=== PATIENT | male | born 1975 | race Caucasian/White ===

== ENCOUNTER 2021-01-07 08:17 | Outpatient (CLI) | payer OTHER, SELFPAY ==
--- NOTE | 2021-01-07 | ECG_ITS ---
Measurements Intervals [place] Rate: 93 P: 38 MN: 164 QRS: 66 QRSD: 97 T: 29 QT: 346 QTc: 431 Interpretive Statements SINUS RHYTHM EARLY PRECORDIAL R/S TRANSITION MINIMAL Q WAVES- INFERIOR LEADS BASELINE ARTIFACT- I, II, III, AVR, AVL, AVF BORDERLINE ECG Electronically Signed On 01-07-2021 9:36:00 CDT by Wing Espinosa D.O.
--- NOTE | ~2021-01-07 | XR_ITS ---
EXAMINATION: XR knee LT 3V DATE: 01/07/2021 08:32 INDICATION: Left knee pain TECHNIQUE: Three views of the left knee were obtained. COMPARISON: None. FINDINGS: Alignment is normal. No fracture or osteochondral lesion. There is mild tricompartmental os teoarthritis characterized by tiny marginal osteophytes. No joint effusion/synovitis. Soft tissues a re unremarkable. IMPRESSION: 1. No acute osseous abnormality. Reviewed, dictated and finalized at location A.
[2021-01-07 08:59] LABS: Basophils Percent Auto 0.3 % (0.2-1.2); Hematocrit 45.1 % (42.0-52.0); Hemoglobin 14.7 g/dL (14.0-18.0); Immature Granulocyte Absolute 0.02 K/mm3 (0.00-0.031); Immature Granulocyte Percent A 0.3 % (0-0.5); Lymphocytes Absolute Auto 0.96 K/mm3 (0.9-3.2); Mean Corpuscular HGB Conc 32.6 g/dl (32-36); Mean Platelet Volume 10.2 fl (7.4-10.4); Monocytes Absolute Auto 0.9 K/mm3 (0.1-0.6); Monocytes Percent Auto 12.3 % (2.6-8.5); Neutrophils Absolute Auto 5.5 K/mm3 (1.3-6.7); Neutrophils Percent Auto 74.1 % (45.5-73.1); Platelet Count Result 171 k/mm3 (150-375); Red Cell Distribution Width 12.6 % (11.5-14.5); White Blood Count 7.4 K/mm3 (4.5-10.0)
[2021-01-07 09:12] LABS: Anion Gap 4 mmol/L (8-16); Blood Urea Nitrogen 10 mg/dL (9-20); Calcium 8.7 mg/dL (8.4-10.2); Carbon Dioxide 29 mmol/L (22-30); Chloride 108 mmol/L (98-107); Estimated Glomerular Filt Rate > 60; Glucose 116 mg/dL (75-110); Potassium 3.5 mmol/L (3.4-5.0); Sodium 141 mmol/L (137-145)
== END 2021-01-07 08:18 | disposition home or self-care (01) ==
PROVIDERS: PCP Family Medicine; Visit Provider Nurse Practitioner Family
DX: H93.19 Tinnitus, unspecified ear (principal); R42 Dizziness and giddiness; M25.569 Pain in unspecified knee; R94.31 Abnormal electrocardiogram [ECG] [EKG]
CPT/HCPCS: 36415; 73562; 80048; 84443; 85025; 93005

== ENCOUNTER 2021-01-27 07:31 | Outpatient (CLI) | payer OTHER, SELFPAY ==
--- NOTE | 2021-01-27 07:45 | EST_ITS ---
Patient Info Name: Zaki Chakraborty Age: 45 years : 1975 Gender: Male Ht: 71 in Wt: 220 lbs BSA: 2.26 m2 Exam Date: 01/27/2021 8:44 AM Exam Location: [facility] Stress Patient Status: Outpatient Admit Date: 01/27/2021 Staff Ordering Physician: Nora Noland NP Attending Provider: Nora Noland NP Exercise Technologist: India Woo RDCS Exercise Physician: Wing Espinosa DO Exam Type: CA stress test treadmill Study Info Indications I10 - Essential (primary) hypertension A treadmill exercise stress test was performed. Summary 1. 1. Negative Junior exercise stress test for ischemic ST changes by ECG criteria. 2. 2. Good functional capacity, achieving 10 METs of workload. 3. 3. Hypertensive response to exercise. 4. 4. Appropriate HR response to exercise. 5. 5. Appropriate HR recovery at 1 minute post exercise. 6. 6. No imaging with stress testing. 7. 7. Patient informed of the above results. Protocol: Junior Stress ECG Details Stage: REST Duration (min): 0 min : 54 sec Speed (mph): 0.0 Grade (%): 0 HR (bpm): 68 SBP (mmHg): 131 DBP (mmHg): 81 METS: --- Stage: REST Duration (min): 5 min : 12 sec Speed (mph): 0.0 Grade (%): 0 HR (bpm): 84 SBP (mmHg): 131 DBP (mmHg): 81 METS: --- Stage: STAGE 1 Duration (min): 1 min : 0 sec Speed (mph): 1.7 Grade (%): 10 HR (bpm): 110 SBP (mmHg): 131 DBP (mmHg): 81 METS: --- Stage: STAGE 1 Duration (min): 2 min : 0 sec Speed (mph): 1.7 Grade (%): 10 HR (bpm): 118 SBP (mmHg): 131 DBP (mmHg): 81 METS: --- Stage: STAGE 1 Duration (min): 3 min : 0 sec Speed (mph): 1.7 Grade (%): 10 HR (bpm): 124 SBP (mmHg): 161 DBP (mmHg): 72 METS: --- Stage: STAGE 2 Duration (min): 1 min : 0 sec Speed (mph): 2.5 Grade (%): 12 HR (bpm): 135 SBP (mmHg): 161 DBP (mmHg): 72 METS: --- Stage: STAGE 2 Duration (min): 2 min : 0 sec Speed (mph): 2.5 Grade (%): 12 HR (bpm): 143 SBP (mmHg): 196 DBP (mmHg): 74 METS: --- Stage: STAGE 2 Duration (min): 3 min : 0 sec Speed (mph): 2.5 Grade (%): 12 HR (bpm): 147 SBP (mmHg): 196 DBP (mmHg): 74 METS: --- Stage: STAGE 3 Duration (min): 1 min : 0 sec Speed (mph): 3.4 Grade (%): 14 HR (bpm): 160 SBP (mmHg): 187 DBP (mmHg): 62 METS: --- Stage: STAGE 3 Duration (min): 2 min : 0 sec Speed (mph): 3.4 Grade (%): 14 HR (bpm): 168 SBP (mmHg): 187 DBP (mmHg): 62 METS: --- Stage: STAGE 3 Duration (min): 2 min : 30 sec Speed (mph): 3.4 Grade (%): 14 HR (bpm): 172 SBP (mmHg): 187 DBP (mmHg): 62 METS: --- Stage: RECOVERY Duration (min): 0 min : 29 sec Speed (mph): 0.0 Grade (%): 0 HR (bpm): 166 SBP (mmHg): 193 DBP (mmHg): 67 METS: --- Stage:
--- NOTE | 2021-01-27 07:45 | ECHO_ITS ---
Patient Info Name: Zaki Chakraborty Age: 45 years : 1975 Gender: Male Ht: 71 in Wt: 220 lbs BSA: 2.26 m2 HR: 71 bpm BP: 134 / 83 mmHg Technical Quality: Good Exam Date: 01/27/2021 8:00 AM Exam Location: [facility] Patient Status: Outpatient Admit Date: 01/27/2021 Staff Ordering Physician: Nora Noland NP Wound Care Technician: India Woo RDCS Attending Provider: Nora Noland NP Referring Physician: Ludin PRICE; Exam Type: CA echo doppler color flow Study Info Indications I10 - Essential (primary) hypertension Complete two-dimensional, color flow and Doppler transthoracic echocardiogram is performed. Summary 1. Complete two-dimensional, color flow and Doppler transthoracic echocardiogram is performed. 2. Left ventricular chamber dimension is normal. 3. Left ventricular systolic function is normal, estimated at 60-65%. 4. The left ventricular diastolic function is normal. 5. E/e' 7 is not elevated. 6. Global longitudinal strain is abnormal at -14.7%. Left Ventricle E/e' 7 is not elevated. Global longitudinal strain is abnormal at -14.7%. Left ventricular chamber dimension is normal. Left ventricular systolic function is normal, estimated at 60-65%. The left ventricular diastolic function is normal. Right Ventricle Right ventricular chamber dimension is normal. Right ventricular systolic function is normal. Left Atria Left atrial chamber dimension is normal. Right Atria Right atrial chamber dimension is normal. Aortic Valve The aortic valve is trileaflet. There is no aortic valve stenosis. There is no aortic valve regurgitation. Pulmonic Valve There is no pulmonic regurgitation. Mitral Valve There is no mitral valve stenosis. There is no mitral valve regurgitation. Tricuspid Valve There is no tricuspid valve regurgitation. Pericardium/Pleural There is no pericardial effusion. Inferior Vena Cava Normal inferior vena cava with >50% collapse upon inspiration consistent with normal right atrial pressure, 5 mmHg. Aorta The aortic root size at the sinus of Valsalva is normal. Left Ventricular Outflow Tract Name Value Normal LVOT 2D LVOT Diameter 2.1 cm LVOT Doppler LVOT Peak Gradient 4 mmHg LVOT Mean Gradient 2 mmHg LVOT VTI 22 cm LVOT VTI/AV VTI Ratio 0.8 LVOT Stroke Volume 73 ml LVOT CO 4.7 l/min LVOT CI 2.1 l/min/m2 Pulmonic Valve Name Value Normal RVOT Doppler RVOT Peak Gradient 2 mmHg PV Doppler PV Peak Gradient 8 mmHg Mitral Valve ----
== END 2021-01-27 07:32 | disposition home or self-care (01) ==
PROVIDERS: PCP Family Medicine; Visit Provider Nurse Practitioner Family
DX: R42 Dizziness and giddiness (principal); I10 Essential (primary) hypertension
CPT/HCPCS: 93017; 93306

== ENCOUNTER 2023-02-09 09:38 | Outpatient (CLI) | payer OTHER, SELFPAY ==
[2023-02-09 10:10] LABS: Basophils Percent Auto 0.6 % (0.2-1.2); Eosinophils Percent Auto 0.4 % (0-4.4); Hematocrit 47.6 % (42.0-52.0); Hemoglobin 15.5 g/dL (14.0-18.0); Immature Granulocyte Absolute 0.02 K/mm3 (0.00-0.031); Immature Granulocyte Percent A 0.4 % (0-0.5); Immature Platelet Fraction Pct 9.2 % (0.9-11.2); Lymphocytes Absolute Auto 1.15 K/mm3 (0.9-3.2); Lymphocytes Percent Auto 23.4 % (18.3-44.2); Mean Corpuscular HGB Conc 32.6 g/dl (32-36); Mean Corpuscular Hemoglobin 30.4 pg (26-34); Mean Corpuscular Volume 93.3 fl (80-100); Mean Platelet Volume 11.4 fl (7.4-10.4); Monocytes Absolute Auto 0.5 K/mm3 (0.1-0.6); Monocytes Percent Auto 9.2 % (2.6-8.5); Neutrophils Absolute Auto 3.2 K/mm3 (1.3-6.7); Platelet Count Result 129 k/mm3 (150-375); Red Cell Distribution Width 12.6 % (11.5-14.5); White Blood Count 4.9 K/mm3 (4.5-10.0)
[2023-02-09 10:17] LABS: Alanine Aminotransferase 31 U/L (6-50); Albumin Level 4.2 g/dL (3.5-5.1); Alkaline Phosphatase 75 U/L (38-126); Anion Gap 3 mmol/L (8-16); Aspartate Amino Transferase 32 U/L (17-59); Bilirubin,Total 0.8 mg/dL (0.2-1.3); Blood Urea Nitrogen 13 mg/dL (9-20); Calcium 8.5 mg/dL (8.4-10.2); Carbon Dioxide 31 mmol/L (22-30); Chloride 106 mmol/L (98-107); Cholesterol 240 mg/dL (0-200); Estimated Glomerular Filt Rate > 60; Glucose 98 mg/dL (65-110); HDL Direct 68 mg/dL; Potassium 4.4 mmol/L (3.4-5.0); Sodium 140 mmol/L (137-145); Triglycerides 86 mg/dL (<150)
[2023-02-09 10:28] LABS: LDL Cholesterol Direct 139 mg/dL
[2023-02-09 10:48] LABS: Prostate Specific Antigen 0.8 ng/mL (< OR = 4.0); Thyroid Stimulating Hormone 0.862 uIU/mL (0.465-4.680)
[2023-02-13 16:39] LABS: Testosterone Free 111.5 pg/mL (35.0-155.0); Testosterone Total 563 ng/dL (250-1100)
== END 2023-02-09 09:39 | disposition home or self-care (01) ==
PROVIDERS: PCP Family Medicine; Visit Provider Family Medicine
DX: I10 Essential (primary) hypertension (principal); F32.5 Major depressive disorder, single episode, in full remission; R68.82 Decreased libido; E78.2 Mixed hyperlipidemia; Z12.5 Encounter for screening for malignant neoplasm of prostate; Z13.220 Encounter for screening for lipoid disorders
CPT/HCPCS: 36415; 80048; 80061; 80076; 84153; 84402; 84403; 84443; 85025; 85055; G0103

== ENCOUNTER 2023-09-08 14:55 | Outpatient (CLI) | payer OTHER, SELFPAY | END 2023-09-08 14:56 | disposition home or self-care (01) | LOC: ANHSURGERY 15:01 | PROVIDERS: PCP Family Medicine; Visit Provider Surgery | DX: K43.9 Ventral hernia without obstruction or gangrene (principal); Z01.818 Encounter for other preprocedural examination | CPT/HCPCS: 36415; 86850; 86900; 86901 ==

== ENCOUNTER 2023-09-10 00:08 | Day surgery (SDC) | payer OTHER, SELFPAY ==
[2023-09-03 10:31] VITALS: BMI 32.3
--- NOTE | 2023-09-03 10:35 | PC.NURSE ---
Report to the Outpatient Waiting Room, entrance under the green pavilion located off [facility], at time 6:00 on date 09/10/23. Planned Procedure Time: 7:30. Time changes happen often and if your time is changed the preop area will call you the afternoon before. - You and your visitor will be asked to self-screen and do not enter if you have any COVID symptoms. - A mask is optional within the hospital at this time. Patients may have clear liquids (water, carbonated beverages, clear teas, apple juice) until 3 hours prior to surgery (4:30) with a maximum of 20 ounces. - No food from midnight until time of surgery Take the following medications with a SIP of water the morning of surgery: LEXAPRO, INHALER DO NOT STOP ANY OF YOUR OTHER PRESCRIPTION MEDICATIONS PRIOR TO SURGERY ?EXCEPT THE FOLLOWING Medications to discontinue per physician: N/A Date to take last dose: N/A Please no make-up, nail bhutanese, hairspray, perfume, deodorant, or body powder the day of surgery. No jewelry (including any body piercings) or valuables the day of surgery, leave them at home. Please take a shower or bath the night before, or the morning of, surgery with an antibacterial soap. Wear comfortable, loose fitting clothing. - Jewelry must be removed prior to entering the operating room. Rings and piercings that are not removed may be cut off. - The hospital will not accept responsibility for valuables. - Please leave all valuables, including medications, at home the day of surgery. If you are going home after surgery, a licensed hazmat tanker driver must drive you home. - NO public transportation without another adult if you receive anesthesia. - We recommend that an adult stay with you for 24 hours following discharge. - We also recommend that you do not drive, make important decision, drink alcoholic beverages, or take any drugs that were not prescribed by your health care provider for at least 24 hours after your discharge time. Follow any additional instructions given to you from your surgeon. If you or anyone in your household have experienced Covid symptoms in the past week, please notify your surgeon or the nurse liaison at the phone number below for possible testing. Telephone instructions given to PT - PHUONG ROMERO and asked if any additional questions and then verbalized understanding. Patient advised to call surgeon office or pre surgery nurse liaison [phone] if any additional questions.
--- NOTE | 2023-09-09 14:56 | WPDANESEPPF ---
Anes - Initial Pre Proc Eval Procedure: Operation Date: 09/10/23 07:30 Proposed Procedures p Robotic Assisted Laparoscopic Incarcerated Ventral Hernia Repair with Mesh, Possible Open - Hung Haque MD Date/Time: 09/09/23 14:56 Surgeon: Hung Haque MD Pre Op Diagnosis: incarcerated ventral hernia Patient Data Age: 47 Gender: M Height: 1.78 m Weight: 102.1 kg Allergies Allergy/AdvReac Type Severity Reaction Status Date / Time No Known Allergies Allergy Mild Verified 09/10/23 06:19 Home Medications Medication Instructions Recorded Confirmed Type fluticasone fur. 100 mcg-umeclid 1 inhalation inhalation DAILY 03/14/20 09/10/23 History 62.5 mcg-vilant 25 mcg inhalat.powder (Trelegy Ellipta) montelukast 10 mg tablet See Rx Instructions .Route 01/07/23 09/10/23 Rx .COMPLEX #90 tabs escitalopram oxalate 10 mg tablet 10 mg PO DAILY #90 tabs 05/18/23 09/10/23 Rx (Lexapro) Patient hx anesthesia problems: none Family hx anesthesia problems: none Results Review: All pre-operative results and documents have been reviewed as part of the pre-operative evaluation. [facility] Past Medical History Medical History (Updated 06/07/23 @ 14:47 by Ryder Kothari MD) BMI 32.0-32.9,adult BMI 33.0-33.9,adult BMI 34.0-34.9,adult Dermatitis Low libido Nasal polyps Screening PSA (prostate specific antigen) Surgical History Surgical History H/O sinus surgery x2 Family History Family History Father Hypertension Mother COPD (chronic obstructive pulmonary disease) Asthma Heart disease Sibling No problems noted. Social History Social History Smoking status: Never smoker Second hand tobacco smoke exposure: No Alcohol intake: current Drinks per week: 4 Alcohol use details: Social alcohol use Substance use: never Substance use type: does not use Lack of Transportation: No Lack of Food: Never True Current Housing: I Have Housing Concerned About Future Housing: No Difficulty Paying Gas/Electric Bills: No Difficulty Paying for Meds: No Currently Unemployed: No Education: Bachelor's Degree Difficulty w/ Childcare or Family Care: No Living arrangements: with family Additional living arrangements comments: CHILDREN Occupation/Education: occupation 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 Informed Consent: The patient's anesthetic plan and its attendant risks and benefits were discussed with the patient/family/POA. Questions were solicited and answers provided to the satisfaction of the patient/family/POA.
[2023-09-10] VITALS (11 sets, daily range): BP systolic 114–148; BP diastolic 74–98; PULSE 77–103; RESP 15–19; TEMP 36.2–36.4; O2SAT 93–98
[2023-09-10] MEDS: ACETAMINOPHEN 500 MG TABLET 1000 MG PO (06:25)
[2023-09-10] MEDS: LACTATED RINGERS 1,000 ML 30 ML IV CONT ×3 (06:35→12:32)
[2023-09-10] MEDS: KETOROLAC 15 MG/ML VIAL (*BKC) IV PUSH ×2 (07:29→10:41)
--- NOTE | 2023-09-10 07:30 | PM.IMHP ---
H&P: HPI History of Present Illness Date/Time: 09/10/23 07:30 Chief Complaint: Incarcerated ventral hernia Narrative: Mr. Chakraborty returns to the office for recheck of a incarcerated umbilical hernia.? Originally evaluated in 01/2023 at which time the patient had voiced he wanted to try to lose weight prior to elective surgery.? Weight is essentially unchanged since initial consultation. ? He has developed some slight overlying skin redness, but no skin breakdown.? Hernia is still nontender.? No change in bowel habits, nausea, vomiting, or abdominal distension.? Review of Systems Review of Systems: The remainder of the review of systems to include constitutional, HEENT, cardiovascular, respiratory, GI, , integumentary, musculoskeletal, endocrine, immunologic, hematologic, psychiatric, and neurologic are all negative except for which is mentioned above in the HPI. [facility] Past Medical History Medical History BMI 32.0-32.9,adult BMI 33.0-33.9,adult BMI 34.0-34.9,adult Dermatitis Low libido Nasal polyps Screening PSA (prostate specific antigen) Surgical History Surgical History H/O sinus surgery x2 Family History Family History Father Hypertension Mother COPD (chronic obstructive pulmonary disease) Asthma Heart disease Sibling No problems noted. Social History Social History Smoking status: Never smoker Second hand tobacco smoke exposure: No Alcohol intake: current Drinks per week: 4 Alcohol use details: Social alcohol use Substance use: never Substance use type: does not use Lack of Transportation: No Lack of Food: Never True Current Housing: I Have Housing Concerned About Future Housing: No Difficulty Paying Gas/Electric Bills: No Difficulty Paying for Meds: No Currently Unemployed: No Education: Bachelor's Degree Difficulty w/ Childcare or Family Care: No Living arrangements: with family Additional living arrangements comments: CHILDREN Occupation/Education: occupation 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 100 mcg-umeclid 1 inhalation inhalation DAILY 03/14/20 09/10/23 History 62.5 mcg-vilant 25 mcg inhalat.powder (Trelegy Ellipta) montelukast 10 mg tablet See Rx Instructions .Route 01/07/23 09/10/23 Rx .COMPLEX #90 tabs escitalopram oxalate 10 mg tablet 10 mg PO DAILY #90 tabs 05/18/23 09/10/23 Rx (Lexapro) Allergies Allergy/AdvReac Type Severity Reaction Status Date / Time No Known Allergies Allergy Mild Verified 09/10/23 06:19 Vital Signs Vital Signs - 24 hr 09/10/23 06:49 Temperature 36.2 C L Pulse Rate 77 Respiratory Rate 16 Blood Pressure 148/87 H Pulse Oximetry 97 Oxygen Delivery Room Air Exam Const: General: comfortable and no acute distress HENMT: Ears: TM's normal bilaterally Face/Nose/Sinus: Normal nares present Mouth: Yes moist mucous membranes Eyes: General: appearance normal, both eyes and all related structures Sclera: sclerae normal Pupils: Equal, round and reactive pupils present EOM: EOMs intact bilaterally Neck: Neck: supple and no JVD Resp: Effort & Inspection: normal respiratory effort Auscultation: clear to auscultation bilaterally Cardio: Rate: regular rate Rhythm: regular rhythm GI: Other: Inspection: normal to inspection and No abdominal distension Auscultation: normal bowel sounds Palpation/Percussion: Yes Soft to palpation and Yes Hernia present Other: Soft, nondistended.? Incarcerated umbilical hernia with a 4cm defect.? Mi
--- NOTE | 2023-09-10 07:33 | WPDHPUPDATE1 ---
History and Physical Update Update Date/Time: 09/10/23 07:33 History and Physical has been reviewed, including an updated exam of the patient. There are NO changes in the patient's condition. Risks, benefits, and alternatives have been discussed and questions answered. Patient agrees to proceed with procedure.
[2023-09-10] MEDS: ceFAZolin 2 GM/D5W 50 ML 2 GM/50 ML BAG IVPB (07:38)
[2023-09-10] MEDS: BUPivacaine HCL 0.5% 10 ML AMP 30 ML INFILTRATE (08:33)
[2023-09-10] MEDS: LIDO 1%/EPINEPHRINE 1:100,000 20 ML VIAL 30 ML INFILTRATE (08:33)
[2023-09-10] MEDS: fentaNYL CITRATE INJ (*CRX) 100 MCG/2 ML VIAL 25 MCG IV PUSH ×2 (11:40→11:42)
--- NOTE | 2023-09-10 12:32 | W.PM.PROC2 ---
Procedure Note - Detailed Date of Procedure 09/10/23 Pre-op Diagnosis incarcerated ventral hernia Post-op Diagnosis Same (Hernia defect = 3.5 cm) Procedure Performed Robotic assisted laparoscopic transabdominal preperitoneal ( ROMAN) incarcerated ventral hernia repair with Bard soft mesh. Surgeon Hung Haque MD Diversity Specialist MIGUELANGEL Garcia Anesthesia General Indications Patient is a 47-year-old male who presented with a progressively enlarging periumbilical bulge. On exam he appeared to have an incarcerated ventral hernia. Contents the hernia sac appeared to be omentum. He presents now for elective robotic assisted laparoscopic incarcerated ventral hernia repair with mesh reinforcement. Findings The incarcerated contents of the hernia sac was omentum which was completely viable. After reduction of the omentum out of the defect, the hernia measured 3.5cm in greatest diameter. No other adhesions or ventral hernias were seen. A piece of [id number] Bard soft mesh was used for the repair and was placed in the preperitoneal plane. Description of Procedure After informed consent was obtained patient brought to the operating room placed supine position and general endotracheal anesthesia was administered. A Whalen catheter was placed decompress the bladder. The abdomen was then prepped draped usual sterile fashion. A time-out was then performed correctly identifying the patient as well as procedure to be performed. He was given perioperative IV antibiotics. First started by placing a 10mm left upper quadrant Optiview port with a direct optical insertion. Once inside the abdomen insufflated to adequate pneumoperitoneum of 15mmHg CO2. Looking into the abdomen I could see that there was omentum incarcerated within the periumbilical ventral hernia sac. No bowel was involved. No other adhesions or other hernia defects were seen. I then placed additional robotic trocar ports along the left lateral abdominal wall under direct visualization. The [employer] Adriana robot was then brought to the patient's bedside and docked to the right side of the patient. The robotic arms were then attached the robotic ports and then robotic instruments were advanced into the abdomen under direct visualization. I then scrubbed out the procedure side down at the robotic console to perform the dissection robotically. I 1st started by reducing the omentum out of the hernia defect. All the omentum that had pulled out of the hernia defect was 1st started by a preperitoneal flap by incising the lateral portions of the peritoneum on the left side. Once inside the preperitoneal plane I continued my dissection towards the midline superior and inferior to the hernia sac and incarcerated contents. Once I had dissected past the midline the preperitoneal plane and I had the volcano sign on the peritoneal sac, I then dissect the hernia sac out of the defect. The resulting defect in the fascia was then measured it was 3.5cm in diameter. There was a very mild associated epigastric diastasis above the hernia defect as well. Once I had the flap dissected across the midline so had at least 5cm of circumferential dissection performed around the defect, I then proceeded to close the defect utilizing a running #1 PDS Stratafix suture. The suture was started 0cm below the defect and the hernia sac was imbricated with the closure of the defect. I continued cephalad of the defect performing a plication defect with that suture to bring the more robust edges of the rectus muscle to the midline. Once this is done I then proceeded to use a [id number] piece of Bard soft mesh which was placed into the abdomen through the 10mm bedside podiatry assistant port site. The mesh was then situated in the dissected space in a rangel configuration so that the vertical axis of the mass was longer than just 15cm. The mesh was centered on the closed defect and then secured circumferentially with a running 2-0 absorbable V lock sutu
[2023-09-10] MEDS: oxyCODONE HCL (*CRX) 5 MG TAB IR PO (13:04)
== END 2023-09-10 13:46 | disposition home or self-care (01) ==
PROVIDERS: PCP Family Medicine; Visit Provider Surgery
PROC: (CPT 49594; principal; 2023-09-10 07:30)
DX: K43.6 Other and unspecified ventral hernia with obstruction, without gangrene (principal)
CPT/HCPCS: 49594; S2900; 36415; 86850; 86900; 86901; A9270; C1781; J0690; J1100; J1170; J1596; J1885; J2250; J2405; J2704; J3010; J7120

== ENCOUNTER 2024-10-11 19:14 | Emergency (ER) | payer OTHER, SELFPAY ==
--- OUTSIDE RECORDS SUMMARY | 2024-10-11 19:16 | XMS_ITS | Continuity of Care Document ---
Author Organization [facility] Address [address] [place] [address] Phone Care Team Providers Care Support Clerk Name Role Phone Hung Blackman MD Unavailable Unavailable Allergies, Adverse Reactions, Alerts Substance Reaction Status Criticality No Known allergies Procedures Procedure Date OFFICE/OUTPATIENT VISIT EST OFFICE/OUTPATIENT VISIT [facility] Advance Directives Directive Yes / No Effective Date File Name Resuscitation Not Answered N/A N/A Life Support Not Answered N/A N/A Intubation Not Answered N/A N/A Antibiotics Not Answered N/A N/A IV Fluid Support Not Answered N/A N/A Tube Feed Not Answered N/A N/A Other Directive N/A N/A WARNING:The information contained in this section is historical and is provided for information only and does not constitute a legal document or any assurance that the information is still accurate. Please verify the information with the reina of the legal document before using it for clinical purposes. Encounters Encounter Description Practice Location Reason(s) For Visit Diagnoses Date Provider Providers Copied on Encounter OFFICE/OUTPA TIENT VISIT EST [facility], [address], [place], [address], [place] tel:[phone] [facility] Shoulder impingementShou lder pain 0- 4 Hiral Persaud. [address], [place], [place], [id number] . tel: [phone] OFFICE/OUTPA TIENT VISIT [facility], [address], [place], [address], [place] tel:[phone] [facility] Shoulder impingementPlan tar fasciitis 0 3 Hiral Persaud. [address], [place], [place], [id number] . tel:[phone] Family History Family Member Type Diagnosis Age At Onset No Information Payers Payer name Insurance type Covered democrat ID Authoriza tion(s) No Information Social History Type Description Quantity Date Captured Comments Alcohol Use Details Unknown Caffeine Use Details Unknown Tobacco Use Status No Information Smoking Status Never smoker Sex Male Chief Complaint And Reason For Visit No Information Reason For Referral Reason For Referral No Information Plan Of Treatment Date Type Action Status Referral Ordered: MRI ANY JT UXTR C-MATRL RT shoulder Appointment date/timeframe: 09/18/2013 ordered Referral Ordered: RADEX FOOT COMPL MINIMUM 3 VIEWS RT foot ordered Referral Ordered: RADEX MARIANA COMPL MINIMUM 2 VIEWS RT shoulder ordered History Of Present Illness Encounter Date Complaint History Of Prese nt Illness No Information Functional Status Date Functional Assessmen t No Information Instructions Date Instruction Additional Infor mation No Information Assessments Type Assessment Date No Information Patient Care Teams Name Effective Dates (start - stop) Status Members No Information
--- OUTSIDE RECORDS SUMMARY | 2024-10-11 19:16 | XMS_ITS | Clinical Summary ---
Author Organization [facility] Address [address] [place] [address] Phone Care Team Providers Care [employer] Reading Teacher Name Role Phone Unavailable Primary Care Provider Unavailabl e Social History Tobacco Use Types Packs/Day Years Used Date Smoking Tobacco: Never Assessed Sex and Gender Information Value Date Recorded Sex Assigned at Not on file Legal Sex Male 10:23 PM CDT Gender Identity Not on file Sexual Orientation Not on file Plan of Treatment Health Maintenance Due Date Last Done Comments DTAP/TDAP/TD VACCINES (1 - Tdap) 1993 HEPATITIS B VACCINES (1 of 3 - 19+ 3-dose series) 1993 COLORECTAL SCREENING 11/23/2019 Colorectal Cancer Screening 11/23/2019 FIT-DNA Q 3 years 11/23/2019 FIT/FOBT Q 1 year 11/23/2019 Flex Sig/CT Colonography Q 5 years 11/23/2019 INFLUENZA VACCINE (#1) 2024 PNEUMOCOCCAL VACCINE 0-64 YEARS Aged Out No longer eligible based on patient's age to complete this topic Insurance [facility] OPTIONS PPO [id number]
[2024-10-11 19:34] VITALS: BP 143/100; PULSE 80; RESP 18; TEMP 36.9; O2SAT 98
[2024-10-11 23:49] VITALS: BP 118/87; PULSE 78; RESP 18; O2SAT 96
--- NOTE | 2024-10-12 00:08 | ED.NAVMDI ---
HPI - Nausea/Vomiting/Diarrhea General Chief complaint: Nausea/Vomiting/Diarrhea Stated complaint: vomiting Time Seen by Provider: 10/11/24 23:50 History of Present Illness HPI Narrative: 48-year-old male presenting to the emergency department for evaluation of nausea, vomiting, abdominal discomfort for last few days. He has had a history of abdominal surgical repair including incarcerated hernias requiring mesh and reduction with Dr. Haque. Presents to the emergency department for persistent nausea vomiting despite antiemetic therapy at home with Zofran and another agent that his brother who is a physician here prescribed. Patient is not any acute distress but is nauseous and belching during my assessment. Endorses some left lower quadrant abdominal pain. No diarrhea but states he has not had anything solid to eat for several days, denies any back pain, chest pain, shortness a breath. No injury trauma. No flu-like symptoms. Went to his regular doctor in tested negative for influenza. Related Data Home Medications ?Medication ?Instructions ?Recorded ?Confirmed ?Last Taken ?Type fluticasone fur. 100 mcg-umeclid 1 inhalation inhalation DAILY 03/14/20 10/11/24 09/05/23 History 62.5 mcg-vilant 25 mcg inhalat.powder (Trelegy Ellipta) albuterol sulfate 90 mcg/actuation 1 puff inhalation Q4H PRN 06/15/24 10/11/24 Unknown History aerosol inhaler benralizumab 30 mg/mL subcutaneous 30 mg subcut ONCE 06/15/24 10/11/24 Unknown History syringe (Fasenra) Allergies Allergy/AdvReac Type Severity Reaction Status Date / Time No Known Allergies Allergy Mild Verified 06/15/24 10:28 Review of Systems Review of Systems: As reviewed above in HPI [facility] Past Medical History Medical History Dermatitis Low libido BMI 34.0-34.9,adult Nasal polyps Screening PSA (prostate specific antigen) Surgical History Surgical History History of incisional hernia repair 09/10/23 Robotic assisted laparoscopic transabdominal preperitoneal ( ROMAN) incarcerated ventral hernia repair with Bard soft mesh, OA Dr. Haque H/O sinus surgery x2 Family History Family History Father Hypertension Mother COPD (chronic obstructive pulmonary disease) Asthma Heart disease Sibling No problems noted. Social History Social History Smoking status: Never smoker Second hand tobacco smoke exposure: No Alcohol intake: current Drinks per week: 4 Alcohol use details: Social alcohol use Substance use: never Substance use type: does not use Lack of Transportation: No Lack of Food: Never True Current Housing: I Have Housing Concerned About Future Housing: No Difficulty Paying Gas/Electric Bills: No Difficulty Paying for Meds: No Currently Unemployed: No Education: Bachelor's Degree Difficulty w/ Childcare or Family Care: No Living arrangements: with family Additional living arrangements comments: CHILDREN Occupation/Education: occupation 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 HEAD: [Normocephalic, atraumatic.] EYES: [PERRLA and EOMI.] ENT: Nares clear, no rhinorrhea or epistaxis. Mucous membranes moist. NECK: Supple. CHEST: [Clear to auscultation. No respiratory distress.] HEART: [Regular rate and rhythm]. No murmur heard. [Normal peripheral pulses.] ABDOMEN: Protuberant but soft abdomen, tender to palpation left lower quadrant without any peritonitis, [No rigidity or guarding] EXTREMITIES: Normal range of motion. [No edema.] SKIN: Warm, dry, no rash. NEURO: [No focal deficits]. Alert and oriented [x3.] PSYCH: [Normal mood and affect.] Course Vital Signs Vital signs: Vital Signs Temperature 36.9 C 10/11/24 19:34 Pulse Rate 80 10/11/24 19:34 Respiratory Rate 18 10/11/24 19:34 Blood Pressure 143/100 H 10/11/24 19:34 Pulse Oximetry 98 10/11/24 19:34 Oxygen Delivery Room Air 10/11/24 19:34 Temperature 36.9 C 10/11/24 19:34 Pulse Rate 62 10/12/24 06:30 Respiratory Rate 17 10/12/24 06:30 Blood Pressure 150/87 H 10/12/24 06:30 Pulse Oximetry 95 10/12/24 06:30 Oxygen Delivery Room Air 10/11/24 19:34 MDM - Nausea/Vomiting/Diarrhea MDM Narrative Medical decision making narrative: 48-year-old male presenting for evaluation of profound nausea and vomiting with some left-sided lower quadrant abdominal pain for last several days. Has a history of abdominal surgical history with repair of an incarcerated hernia requiring mesh. Denies any worsening protuberance or distention is abdomen. States he has not been eating or drinking so he is not sure if he has been constipated or not. No fever chills. No chest pain shortness a breath. Vital signs all within normal limits, no tachycardia, fever, hypoxia blood pressure concerns. He has a soft protuberant abdomen with tenderness in left lower quadrant. Suspicion presently is for potential viral gastroenteritis, possible bowel obstruction or partial bowel obstruction, less likely diverticulitis or volvulus. Will obtain laboratory studies including CBC, CMP, lipase, lactic acid, CT scan with IV contrast was obtained and he was given medications including Pepcid, Reglan, diphenhydramine and a fluid bolus and re-evaluated frequently. Three patient was re-evaluated with symptom improvement has not vomited and felt retching since he arrived to the ED. Normal vital signs and reassessment. Workup shows mild leukocytosis of 12.7, no anemia or platelet concerns. Chemistry panel shows normal electrolytes aside from some mild hypokalemia 3.3. Normal renal function, normal hepatic function, negative lactic acid, normal glucose. This urinalysis with no signs of infection, some ketones and dehydration consistent with his history. Negative viral panel. Patient CT scan shows duodenitis can his symptomatology but no evidence of perforation. There is some hypoperfusion to the left kidney suspicious for pyelonephritis although he has no pain in that area and nose findings on urinalysis to correlate with this. Unlikely related. Given patient's symptoms and suspicion for duodenitis on CT scan we went over plan of care going forward for triple therapy including PPI and to antibiotics. He will be sent home with the combination regimen to treat this and referred to Gastroenterology for outpatient evaluation and potential EGD if warranted. Patient was given return precautions and symptom control medications on discharge. We went over potential admission here although he felt improved and has not vomited since his arrival. Medical Records Attestation: I reviewed the patient's medical records. Lab Data Attestation: I reviewed the patient's lab results. 10/12/24 00:09 10/12/24 00:09 Labs: Lab Results 10/12/24 10/12/24 Range/Units 00:09 02:22 WBC 12.7 H (4.5-10.0) K/mm3 RBC 4.95 (4.6-6.20) M/mm3 Hgb 14.9 (14.0-18.0) g/dL Hct 43.7 (42.0-52.0) % MCV 88.3 (80-100) fl MCH 30.1 (26-34) pg MCHC 34.1 (32-36) g/dl RDW 12.4 (11.5-14.5) % Plt Count 260 D (150-375) k/mm3 MPV 10.5 H (7.4-10.4) fl Immature Gran % (Auto) 0.5 (0-0.5) % Neut % (Auto) 79.6 H (45.5-73.1) % Lymph % (Auto) 9.6 L (18.3-44.2) % Saline % (Auto) 9.8 H (2.6-8.5) % Eos % (Auto) 0.2 (0-4.4) % Baso % (Auto) 0.3 (0.2-1.2) % Lymph # (Auto) 1.22 (0.9-3.2) K/mm3 Saline # (Auto) 1.2 H (0.1-0.6) K/mm3 Eos # (Auto) 0.0 (0-0.3) K/mm3 Baso # (Auto) 0.0 (0.0-0.1) K/mm3 Abs Immat Gran (auto) 0.06 H (0.00-0.031) K/mm3 Absolute Neuts (auto) 10.1 H (1.3-6.7) K/mm3 Absolute Nucleated RBC 0.000 (0.0-0.012) K/mm3 Nucleated RBC % 0.0 (0.0-0.2) % Sodium 137 (137-145) mmol/L Potassium 3.3 L (3.4-5.0) mmol/L Chloride 95 L (98-107) mmol/L Carbon Dioxide 31 H (22-30) mmol/L Anion Gap 11 (4-12) mmol/L BUN 19 (9-20) mg/dL Creatinine 0.77 (0.7-1.3) mg/dL Estim Creat Clear Calc Not Reportable Estimated GFR > 60 (59 - ) Glucose 112 H (65-110) mg/dL Lactic Acid 1.0 (0.7-2.0) mmol/L Calcium 8.8 (8.4-10.2) mg/dL Total Bilirubin 0.9 (0.2-1.3) mg/dL AST 37 (17-59) U/L ALT 43 (6-50) U/L Alkaline Phosphatase 81 (38-126) U/L Total Protein 7.0 (6.3-8.2) g/dL Albumin 4.1 (3.5-5.1) g/dL Lipase 44 (23-300) U/L Urine Color Yellow (Yellow) Urine Appearance Clear (Clear) Urine pH 5.5 (5.0-9.0) Ur Specific [place] > 1.045 H (1.001-1.035) Urine Protein 1+ H (Negative) mg/dL Urine Glucose (UA) Negative (Negative) mg/dL Urine Ketones 1+ H (Negative) mg/dL Ur Blood (Man) Negative (Negative) Urine Nitrate Negative (Negative) Urine Bilirubin Negative (Negative) Urine Urobilinogen 1.0 (<2.0) mg/dL Leukocyte Esterase Rfl Negative (Negative) MONIQUE/UL Urine RBC 0-2 (0-2) /hpf Urine WBC 0-5 (0-3) /hpf Ur Squamous Epith Cells None seen (Few) /hpf Urine Bacteria None seen /hpf Urine Casts 0-2 Imaging Data Attestation: I personally reviewed and interpreted this imaging study as follows: My impression: Impressions Abdomen/Pelvis CT 10/12/24 06:05 IMPRESSION: 1. Heterogeneous patchy hypoperfusion of the left kidney, suspicious for pyelonephritis. 2: Thickened duodenum with mucosal enhancement, suspicious for duodenitis. No evidence for perforation. Discharge Plan Discharge Clinical Impression: Duodenitis, Nausea & vomiting Patient Disposition: Home, Self-Care Condition: Stable Instructions: Antibiotic Form, Clear Liquid Diet (ED), Acute Nausea and Vomiting (ED), Duodenitis (ED) Additional Instructions: Your CT scan shows inflammation of the duodenum consistent with duodenitis. This could be secondary to a bacterial infection, H pylori infection or ulceration there from peptic ulcer disease although less likely given your history. We will treat this with to a different antibiotics and a proton pump inhibitor for coverage. We will send you home with nausea controlling medications as well as these prescription medications. If you have any worsening or new symptoms please return to the ER otherwise follow-up with your regular doctor and the GI doctor we will refer you to for potential endoscopy or other interventions if warranted. Patient Language: South African Prescriptions: New clarithromycin 500 mg tablet 500 mg PO Q12H 10 Days Qty: 20 0RF metronidazole 500 mg tablet 500 mg PO Q12H 10 Days Qty: 20 0RF pantoprazole [Protonix] [address] for susp in packet 40 mg PO DAILY Qty: 30 0RF metoclopramide HCl [Reglan] 10 mg tablet 10 mg PO Q6H PRN (Reason: nausea and vomiting) Qty: 20 0RF No Action Trelegy Ellipta 100-62.5-25 mcg blister with device 1 inhalation INHALATION DAILY albuterol sulfate 90 mcg/actuation HFA aerosol inhaler 1 puff inhalation Q4H PRN Fasenra 30 mg/mL syringe 30 mg subcut ONCE Rx Instructions: Q 8 weeks ondansetron HCl 4 mg tablet 4 mg PO Q8H PRN (Reason: nausea and vomiting) Qty: 20 0RF escitalopram oxalate [Lexapro] 10 mg tablet 10 mg PO DAILY Qty: 90 4RF montelukast 10 mg tablet See Rx Instructions .ROUTE .COMPLEX Qty: 90 0RF Dose Instruction: TAKE 1 TABLET BY MOUTH DAILY Rx Instructions: TAKE 1 TABLET BY MOUTH DAILY Follow-up/Referrals: Enoch Bundy MD [Physician] - 1 Week (Duodenitis) Ryder Kothari MD [Primary Care Provider] - Time of Disposition: 06:37
--- OUTSIDE RECORDS SUMMARY | 2024-10-12 00:15 | XMS_ITS | Continuity of Care Document ---
Author Organization [facility] Address [address] [place] [address] Phone Care Team Providers Care Hydrocrane Operator Name Role Phone Hung Blackman MD Unavailable Unavailable Allergies, Adverse Reactions, Alerts Substance Reaction Status Criticality No Known allergies Procedures Procedure Date OFFICE/OUTPATIENT VISIT EST OFFICE/OUTPATIENT VISIT [facility] Advance Directives Directive Yes / No Effective [...] Copied on Encounter OFFICE/OUTPA TIENT VISIT EST [facility], [address], [address], [place] tel:[phone] [facility] Shoulder impingementShou lder pain 0- 4 Hiral Persaud. [address], [place], [place], [id number] . tel: [phone] OFFICE/OUTPA TIENT VISIT [facility], [address], [place], [address], [place] tel:[phone] [facility] Shoulder impingementPlan tar fasciitis 0 3 Hiral Persaud. [address], [place], [place], [id number] . tel:[phone] Family History Family Member Type Diagnosis Age At Onset No Information Payers Payer name Insurance type Covered libertarian ID Authoriza tion(s) No Information Social History [...]
--- OUTSIDE RECORDS SUMMARY | 2024-10-12 00:15 | XMS_ITS | Clinical Summary ---
Author Organization [facility] Address [address] [place] [address] Phone Care Team Providers Care Approver Name Role Phone Unavailable Primary Care Provider [...] patient's age to complete this topic Insurance [facility] OPTIONS PPO [id number]
[2024-10-12 00:19] LABS: Basophils Percent Auto 0.3 % (0.2-1.2); Eosinophils Percent Auto 0.2 % (0-4.4); Hematocrit 43.7 % (42.0-52.0); Hemoglobin 14.9 g/dL (14.0-18.0); Immature Granulocyte Absolute 0.06 K/mm3 (0.00-0.031); Immature Granulocyte Percent A 0.5 % (0-0.5); Lymphocytes Absolute Auto 1.22 K/mm3 (0.9-3.2); Lymphocytes Percent Auto 9.6 % (18.3-44.2); Mean Corpuscular HGB Conc 34.1 g/dl (32-36); Mean Corpuscular Hemoglobin 30.1 pg (26-34); Mean Corpuscular Volume 88.3 fl (80-100); Mean Platelet Volume 10.5 fl (7.4-10.4); Monocytes Absolute Auto 1.2 K/mm3 (0.1-0.6); Monocytes Percent Auto 9.8 % (2.6-8.5); Neutrophils Absolute Auto 10.1 K/mm3 (1.3-6.7); Neutrophils Percent Auto 79.6 % (45.5-73.1); Platelet Count Result 260 k/mm3 (150-375); Red Blood Count 4.95 M/mm3 (4.6-6.20); Red Cell Distribution Width 12.4 % (11.5-14.5); White Blood Count 12.7 K/mm3 (4.5-10.0)
[2024-10-12 00:27] LABS: Alanine Aminotransferase 43 U/L (6-50); Albumin Level 4.1 g/dL (3.5-5.1); Alkaline Phosphatase 81 U/L (38-126); Anion Gap 11 mmol/L (4-12); Aspartate Amino Transferase 37 U/L (17-59); Bilirubin,Total 0.9 mg/dL (0.2-1.3); Blood Urea Nitrogen 19 mg/dL (9-20); Calcium 8.8 mg/dL (8.4-10.2); Carbon Dioxide 31 mmol/L (22-30); Chloride 95 mmol/L (98-107); Estimated Glomerular Filt Rate > 60; Glucose 112 mg/dL (65-110); Lipase 44 U/L (23-300); Potassium 3.3 mmol/L (3.4-5.0); Sodium 137 mmol/L (137-145)
[2024-10-12] MEDS: METOCLOPRAMIDE HCL INJ 10 MG/2 ML VIAL IV PUSH (00:55)
[2024-10-12] MEDS: SODIUM CHLORIDE 0.9% IV 1,000 ML 999 ML IV CONT (00:57)
[2024-10-12] MEDS: diphenhydrAMINE HCl INJ 50 MG/ML VIAL 25 MG IV PUSH (00:59)
[2024-10-12] MEDS: FAMOTIDINE 20 MG/2 ML VIAL IV PUSH ×2 (01:02→05:07)
[2024-10-12 02:37] LABS: Add Urine Microscopic? YES; Appearance Urine Clear (Clear); Bacteria Urine None Seen /hpf; Bilirubin Urine Negative (Negative); Blood Urine Negative (Negative); Color Urine Yellow (Yellow); Glucose Urine UA Negative (Negative); Ketones Urine 1+ mg/dL (Negative); Leukocyte Esterase Ur Negative LEU/UL (Negative); Nitrate Urine Negative (Negative); Non Pathogenic Casts 0-2; Protein Urine 1+ mg/dL (Negative); RBC Urine 0-2 /hpf (0-2); Specific Grav Ur > 1.045 (1.001-1.035); Squamous Epithelial Cell Urine None Seen /hpf (Few); WBC Urine 0-5 /hpf (0-3); pH Urine 5.5 (5.0-9.0)
[2024-10-12 03:20] VITALS: BP 138/99; PULSE 73; RESP 16; O2SAT 96
[2024-10-12] MEDS: CLARITHROMYCIN 500 MG TABLET PO (05:06)
[2024-10-12] MEDS: ONDANSETRON INJ 4 MG/2 ML VIAL IV PUSH (05:07)
[2024-10-12] MEDS: metroNIDAZOLE 500 MG/ISO 100ML 500 MG/100 ML BAG 100 MG IVPB (05:07)
[2024-10-12] MEDS: PANTOPRAZOLE SODIUM IV 40 MG VIAL IV PUSH (05:07)
[2024-10-12] MEDS: LACTATED RINGERS 1,000 ML 999 ML IV CONT (05:07)
[2024-10-12 05:21] VITALS: BP 141/92; PULSE 64; RESP 17; O2SAT 98
[2024-10-12 06:30] VITALS: BP 150/87; PULSE 62; RESP 17; O2SAT 95
== END 2024-10-12 06:46 | disposition home or self-care (01) ==
PROVIDERS: Emergency Provider Student in an Organized Health Care Education/Training Program; PCP Family Medicine
DX: K29.80 Duodenitis without bleeding (principal); R11.2 Nausea with vomiting, unspecified
CPT/HCPCS: 36415; 74177; 80053; 81001; 83605; 83690; 85025; 96361; 96365; 96374; 96375; 96376; 99284; A9270; J1200; J1836; J2405; J2470; J2765; J7030; J7120; Q9967

== ENCOUNTER 2025-05-22 01:00 | Day surgery (SDC) | payer OTHER, SELFPAY ==
[2025-05-08 15:17] VITALS: BMI 31.4
--- OUTSIDE RECORDS SUMMARY | 2025-05-22 01:02 | XMS_ITS | Clinical Summary ---
Author Organization [facility] Address [address] [place] [address] Phone Care Team Providers Care Matchbook Assembler Name Role Phone Unavailable Primary Care Provider [...] (1 of 3 - 19+ 3-dose series) 04/1994 COLORECTAL SCREENING 11/23/2019 Colorectal Cancer Screening 11/23/2019 FIT-DNA Q 3 years 11/23/2019 FIT/FOBT Q 1 year 11/23/2019 Flex Sig/CT Colonography Q 5 years 11/23/2019 ZOSTER VACCINE (1 of 2) 2024 INFLUENZA VACCINE (#1) 2025 Insurance [facility] OPTIONS PPO [id number]
[2025-05-22 08:37] VITALS: BP 135/86; PULSE 88; RESP 20; TEMP 36.6; O2SAT 98; BMI 33.7
[2025-05-22] MEDS: LACTATED RINGERS 1,000 ML 150 ML IV CONT (08:40)
--- NOTE | 2025-05-22 08:59 | P.PNAN_ITS ---
Anes - Initial Pre Proc Eval Procedure: Operation Date: 05/22/25 10:00 Proposed Procedures p Screening Colonoscopy - Enoch Bundy MD Date/Time: 05/22/25 08:59 Surgeon: Enoch Bundy MD Pre Op Diagnosis: Screening Patient Data Age: 49 Gender: M Height: 1.8 m Weight: 109.53 kg Last Vital Signs Temp 36.6 C 05/22/25 08:37 Pulse 88 05/22/25 08:37 Resp 20 05/22/25 08:37 BP 135/86 05/22/25 08:37 Pulse Ox 98 05/22/25 08:37 O2 Del Method Room Air 05/22/25 08:37 Allergies Allergy/AdvReac Type Severity Reaction Status Date / Time No Known Allergies Allergy Mild Verified 05/22/25 08:35 Home Medications ?Medication ?Instructions ?Recorded ?Confirmed ?Type fluticasone fur. 100 mcg-umeclid 1 inhalation inhalati on DAILY 03/14/20 05/22/25 History 62.5 mcg-vilant 25 mcg inhalat.powder (Trelegy Ellipta) albuterol sulfate 90 mcg/actuation 1 puff inhalation Q 4H PRN 06/15/24 05/22/25 History aerosol inhaler shortness of breath or wheez ing benralizumab 30 mg/mL subcutaneous 30 mg subcut ONCE 1 05/22/25 History syringe (Fasenra) montelukast 10 mg tablet See Rx Instructions .Route 1 08/17/23 05/22/25 Rx .COMPLEX #90 tabs escitalopram oxalate 10 mg tablet 10 mg PO DAILY #90 t abs 11/28/24 05/22/25 Rx (Lexapro) Patient hx anesthesia problems: none Family hx anesthesia problems: none Results Review: All pre-operative results and documents have been reviewed as part of the pre- operative evaluation. [facility] Past Medical History Medical History (Updated 05/21/25 @ 09:58 by Baldemar Aviles DO) Depression Anxiety TIMUR (obstructive sleep apnea) COPD (chronic obstructive pulmonary disease) Asthma Dermatitis Low libido BMI 34.0-34.9,adult Nasal polyps Screening PSA (prostate specific antigen) Surgical History Surgical History History of incisional hernia repair 09/10/23 Robotic assisted laparoscopic transabdominal preperitoneal ( ROMAN) incarcerated ventral hernia repair with Bard soft mesh, OA Dr. Haque H/O sinus surgery x2 Family History Family History Father Hypertension Mother COPD (chronic obstructive pulmonary disease) Asthma Heart disease Sibling No problems noted. Social History Social History (Updated 04/26/25 @ 14:28 by Alisia Srinivasan MA) Smoking status: Never smoker Second hand tobacco smoke exposure: No Alcohol intake: current Drinks per week: 4 Alcohol use details: Social alcohol use Substance use: never Substance use type: does not use Do You Feel Safe in your Home?: Yes Lack of Transportation: No Lack of Food: Never True Current Housing: I Have Housing Concerned About Future Housing: No Difficulty Paying Gas/Electric Bills: No Difficulty Paying for Meds: No Currently Unemployed: No Education: Bachelor's Degree Difficulty w/ Childcare or Family Care: No Living arrangements: with family Additional living arrangements comments: CHILDREN Occupation/Education: occupation 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 Informed Consent: The patient's anesthetic plan and its attendant risks and benefits were discussed with the patient/family/POA. Questions were solicited and answers provided to the satisfaction of the patient/family/POA.
--- NOTE | 2025-05-22 09:07 | P.HP_ITS ---
History of Present Illness History of Present Illness Consent: Risks, benefits, and alternatives have been discussed and questions answered. Patient agrees to proceed with procedure. Chief complaint: Screening Narrative: Zaki Chakraborty is a 49 year old male here for first screening colonoscopy Review of Systems Review of Systems: All systems reviewed & are unremarkable except as noted in HPI and below PMFSH Past Medical History Medical History (Updated 05/22/25 @ 09:08 by Enoch Bundy MD) Colon cancer screening Depression Anxiety TIMUR (obstructive sleep apnea) COPD (chronic obstructive pulmonary disease) Asthma Dermatitis Low libido BMI 34.0-34.9,adult Nasal polyps Screening PSA (prostate specific antigen) Surgical History Surgical History History of incisional hernia repair 09/10/23 Robotic assisted laparoscopic transabdominal preperitoneal ( ROMAN) incarcerated ventral hernia repair with Bard soft mesh, OA Dr. Haque H/O sinus surgery x2 Family History Family History Father Hypertension Mother COPD (chronic obstructive pulmonary disease) Asthma Heart disease Sibling No problems noted. Social History Social History (Updated 04/26/25 @ 14:28 by Alisia Srinivasan MA) Smoking status: Never smoker Second hand tobacco smoke exposure: No Alcohol intake: current Drinks per week: 4 Alcohol use details: Social alcohol use Substance use: never Substance use type: does not use Do You Feel Safe in your Home?: Yes Lack of Transportation: No Lack of Food: Never True Current Housing: I Have Housing Concerned About Future Housing: No Difficulty Paying Gas/Electric Bills: No Difficulty Paying for Meds: No Currently Unemployed: No Education: Bachelor's Degree Difficulty w/ Childcare or Family Care: No Living arrangements: with family Additional living arrangements comments: CHILDREN Occupation/Education: occupation 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 100 mcg-umeclid 1 inhalation inhalati on DAILY 03/14/20 05/22/25 History 62.5 mcg-vilant 25 mcg inhalat.powder (Trelegy Ellipta) albuterol sulfate 90 mcg/actuation 1 puff inhalation Q 4H PRN 06/15/24 05/22/25 History aerosol inhaler shortness of breath or wheez ing benralizumab 30 mg/mL subcutaneous 30 mg subcut ONCE 1 05/22/25 History syringe (Fasenra) montelukast 10 mg tablet See Rx Instructions .Route 1 08/17/23 05/22/25 Rx .COMPLEX #90 tabs escitalopram oxalate 10 mg tablet 10 mg PO DAILY #90 t abs 11/28/24 05/22/25 Rx (Lexapro) Allergies Allergy/AdvReac Type Severity Reaction Status Date / Time No Known Allergies Allergy Mild Verified 05/22/25 08:35 Vital Signs Vital Signs - 24 hr 05/22/25 08:37 Temperature 97.8 F Pulse Rate 88 Respiratory Rate 20 Blood Pressure 135/86 Pulse Oximetry 98 Oxygen Delivery Room Air Exam Const: General: comfortable and no acute distress HENMT: Face/Nose/Sinus: Normal nares present Eyes: General: appearance normal, both eyes and all related structures Neck: Neck: no JVD Resp: Auscultation: clear to auscultation bilaterally Cardio: Rate: regular rate Rhythm: regular rhythm GI: Inspection: non-distended GI Palp: Yes Soft to palpation Skin: General skin exam: normal color Extrem: General: normal to inspection Psych: Mental Status: mental status grossly normal Assessment and Plan Assessment and plan (1) Colon cancer screening: Code(s): Z12.11 - Encounter for screening for malignant neoplasm of colon Status: Acute Assessment and Plan: colonoscopy
--- NOTE | 2025-05-22 09:27 | S_PTH ---
PATIENT: Zaki Chakraborty LOC: [facility] Gonzalez#:[id number] AGE/SX: 49/M ROOM: RE05/22/[address]: Enoch Bundy MD : 1975 BED: DIS: 05/22/2025 SPEC #: [id number] RECD: 05/22/25 11:26 STATUS: FRITZ REZahra #: [id number] RICHIE: 05/22/25 09:[address]: Enoch Bundy DEPT: [facility] Surgical RECD BY: Jag Quinteros ENTERED: 05/22/25 11:26 SP TYPE: Surgical OTHR DR: Ryder Kothari MD Tissues: A - Colon Polypectomy Procedures: Hematoxylin and Eosin Stain Gross and Microscopic Level 4
--- NOTE | 2025-05-22 09:28 | SUR.OPER ---
Ascending colon polyp not retrieved in trap. Dr. Banegas notified and aware.
[2025-05-22 09:30] VITALS: BP 114/66; PULSE 80; RESP 18; O2SAT 94
[2025-05-22 09:40] VITALS: BP 122/73; PULSE 72; RESP 18; O2SAT 97
[2025-05-22 09:50] VITALS: BP 127/73; PULSE 74; RESP 18; O2SAT 99
== END 2025-05-22 09:53 | disposition home or self-care (01) ==
PROVIDERS: PCP Family Medicine; Visit Provider Internal Medicine Gastroenterology
PROC: 0DJD8ZZ Inspection of Lower Intestinal Tract, Via Natural or Artificial Opening Endoscopic (ICD-10-PCS; CPT 45378; principal; 2025-05-22 10:00)
DX: Z12.11 Encounter for screening for malignant neoplasm of colon (principal); K64.8 Other hemorrhoids; D12.3 Benign neoplasm of transverse colon; G47.33 Obstructive sleep apnea (adult) (pediatric); J44.9 Chronic obstructive pulmonary disease, unspecified; F32.A Depression, unspecified; F41.9 Anxiety disorder, unspecified; E66.9 Obesity, unspecified; Z68.33 Body mass index [BMI] 33.0-33.9, adult; Z79.51 Long term (current) use of inhaled steroids; Z98.890 Other specified postprocedural states; Z82.49 Family history of ischemic heart disease and other diseases of the circulatory system
CPT/HCPCS: 45385; 88305; J2704; J7120

== ENCOUNTER 2025-08-01 10:27 | Outpatient (CLI) | payer OTHER, SELFPAY ==
--- NOTE | ~2025-08-01 | CT_ITS ---
EXAM/PROCEDURE: CT abdomen pelvis w con HISTORY: R10.9 - Unspecified abdominal pain COMPARISON: 10/12/2024 TECHNIQUE: Contrast-enhanced CT of abdomen and pelvis FINDINGS: The lung bases are clear. Heart size normal. The bowel gas pattern is nonobstructive with no free air free fluid or pneumatosis. No hydroureteronephrosis, or gross CT evidence of acute cholecystitis or pancreatitis. Normal size aorta and appendix. Liver spleen adrenal glands pancreas and stomach are unremarkable. Mild wall thickening may be present in the area of the porus and proximal duodenum. No bulky mesenteric or retroperitoneal lymphadenopathy or masses seen. Kidneys appear normal in enhancement. Adrenal glands appear normal. Urinary bladder appears normal for technique. Prostate normal size. Small fat-containing inguinal hernias. No bulky mesenteric or retroperitoneal lymphadenopathy or masses seen. Diffuse degenerative changes of lumbar spine and intervertebral disc prosthesis at L5-S1 which otherwise appears intact No acute process seen in the extra peritoneal soft tissues. IMPRESSION: Possible mild wall thickening in the proximal duodenum which could be associated with duodenitis. Other findings as above. Reviewed, dictated and finalized at location A. 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 Other findings as above.
[2025-08-01 11:53] LABS: Hematocrit 45.8 % (42.0-52.0); Hemoglobin 15.0 g/dL (14.0-18.0); Immature Granulocyte Percent A 0.4 % (0-0.5); Lymphocytes Absolute Auto 1.45 K/mm3 (0.9-3.2); Mean Corpuscular HGB Conc 32.8 g/dl (32-36); Mean Corpuscular Hemoglobin 30.0 pg (26-34); Mean Corpuscular Volume 91.6 fl (80-100); Nucleated Red Blood Cells Absolute Auto 0.000 K/mm3 (0.0-0.012); Nucleated Red Blood Cells Perc 0.0 % (0.0-0.2); Platelet Count Result 219 k/mm3 (150-375); Red Blood Count 5.00 M/mm3 (4.6-6.20); White Blood Count 5.5 K/mm3 (4.5-10.0)
--- OUTSIDE RECORDS SUMMARY | 2025-08-01 12:09 | XMS_ITS | Clinical Summary ---
Author Organization [facility] Address [address] [place] [address] Phone Care Team Providers Care Bariatric Surgeon Name Role Phone Unavailable Primary Care Provider [...] 2) 2024 INFLUENZA VACCINE (#1) 2025 Insurance [facility] OPTIONS PPO [id number]
[2025-08-01 12:12] LABS: Alanine Aminotransferase 25 U/L (6-50); Albumin Level 4.0 g/dL (3.5-5.1); Alkaline Phosphatase 80 U/L (38-126); Amylase 82 U/L (30-110); Anion Gap 7 mmol/L (4-12); Aspartate Amino Transferase 29 U/L (17-59); Bilirubin,Total 0.7 mg/dL (0.2-1.3); Blood Urea Nitrogen 10 mg/dL (9-20); Calcium 8.8 mg/dL (8.4-10.2); Carbon Dioxide 25 mmol/L (22-30); Chloride 106 mmol/L (98-107); Cholesterol 228 mg/dL (0-200); Estimated Glomerular Filt Rate > 60; Glucose 85 mg/dL (65-110); HDL Direct 58 mg/dL; Lipase 80 U/L (23-300); Potassium 4.0 mmol/L (3.4-5.0); Sodium 138 mmol/L (137-145); Total Protein 7.1 g/dL (6.3-8.2); Triglycerides 115 mg/dL (<150)
[2025-08-01 12:48] LABS: Prostate Specific Antigen 1.0 ng/mL (< OR = 4.0); Thyroid Stimulating Hormone 0.875 uIU/mL (0.465-4.680)
== END 2025-08-01 10:28 | disposition home or self-care (01) ==
PROVIDERS: PCP Family Medicine
DX: E55.9 Vitamin D deficiency, unspecified (principal); I10 Essential (primary) hypertension; E78.2 Mixed hyperlipidemia; R10.9 Unspecified abdominal pain; Z12.5 Encounter for screening for malignant neoplasm of prostate; Z13.1 Encounter for screening for diabetes mellitus; Z13.220 Encounter for screening for lipoid disorders; Z13.29 Encounter for screening for other suspected endocrine disorder; R11.0 Nausea
CPT/HCPCS: 36415; 74177; 80053; 80061; 82150; 82306; 83690; 84153; 84443; 85025; G0103; Q9967